=== PATIENT | male | born 1990 | race Two or more races ===

== ENCOUNTER 2020-10-31 03:44 | Emergency (ER) | payer SELFPAY ==
[~2020-10-31] VITALS: Ht 182.9 cm; Wt 74.0 kg
[2020-10-31] MEDS ORDERED: LIDOCAINE HCL 1% 20ML VIAL (Pyxis) INJ INFIL ONE (04:15)
[2020-10-31] MEDS ORDERED: TETANUS, DIPHTHERIA, PERTUSSIS VAC/PF 0.5ML (>7YR OLD) IM ONE (04:15)
[2020-10-31] MEDS ORDERED: KETOROLAC 60MG/2ML VIAL IM ONE (04:15)
[2020-10-31] MEDS ORDERED: MORPHINE SULFATE 4 MG/ML CPJ (NOT FOR IM USE) IV ONE (04:30)
[2020-10-31] MEDS ORDERED: IBUP-2029 MT (05:48)
[2020-10-31 06:13] VITALS: BP 110/75
== END 2020-10-31 06:17 | disposition home or self-care (01) ==
LOC: ER 03:44
DX: S02.2XXA Fracture of nasal bones, initial encounter for closed fracture (principal); S00.11XA Contusion of right eyelid and periocular area, initial encounter; S20.219A Contusion of unspecified front wall of thorax, initial encounter; Y08.89XA Assault by other specified means, initial encounter; Y93.89 Activity, other specified; Y92.89 Other specified places as the place of occurrence of the external cause
CPT/HCPCS: 12011; 21315; 70450; 70486; 70490; 71250; 90471; 90715; 96372; 96374; 99285; J1885; J2270; J3490; J7042; Z7610